=== PATIENT | male | born 1965 | race Caucasian/White ===

== ENCOUNTER 2021-08-04 12:56 | Emergency (ER) | payer OTHER ==
[~2021-08-04] VITALS: Ht 177.8 cm; Wt 99.8 kg
[2021-08-04] MEDS ORDERED: ASPIRIN 81 MG CHEW (CHILDREN'S ASA) PO ONE (13:15)
--- NOTE | 2021-08-04 13:19 | ED Chest Pain ---
General Stated Complaint: CP,HIGH HR, LYNN Source: patient Exam Limitations: no limitations (KRISTINA ZALDIVAR APRN) History of Present Illness Date Seen by Provider: Aug 04, 2021 Time Seen by Provider: 13:15 Initial Comments To ER with central chest pain since yesterday when he was driving. He has been alerted by his apple watch that his heart rate has been high for a couple of days. He has a history of atrial fibrillation/atrial flutter and is on metoprolol 50mg po daily and cardizem 240mg po daily and Pradaxa twice daily. He has not missed any Pradaxa doses but has skipped 2 weeks of metoprolol doses because he felt like his heart rate would increase after he took it. He did take a dose of it this morning prior to coming here. He is not sure how many milligrams this is. He follows with cardiology in [place] where he resides and is visiting here for the holidays. No history of coronary stenting. He states that they did mention wanting to do an ablation but he has not had that done yet. He is a non-smoker but has hyperlipidemia on atorvastatin, diabetes controlled with oral medications. Timing/Duration: 2-3 days Severity/Quality: moderate Location: central Radiation: no radiation Activities at Onset: none ASA po SHADE BANDER: No NTG SL SHADE BANDER: No Associated Symptoms: denies symptoms (KRISTINA ZALDIVAR APRN) Allergies and Home Medications Allergies Coded Allergies: No Known Drug Allergies (Unverified , 08/04/21) Patient Home Medication List Home Medication List Reviewed: Yes (KRISTINA ZALDIVAR APRN) Diltiazem HCl (Cardizem Cd) 120 Mg Cap.er.24h, 120 MG PO DAILY Prescribed by: KRISTINA ZALDIVAR on 08/04/21 1408 Review of Systems Review of Systems Constitutional: see HPI; No chills, No diaphoresis, No dizziness, No fever EENTM: No Symptoms Reported Respiratory: No Symptoms Reported Cardiovascular: See HPI, Chest Pain, Irregular Heart Rate, Palpitations Gastrointestinal: See HPI; Denies Nausea, Denies Vomiting Genitourinary: No Symptoms Reported Musculoskeletal: no symptoms reported Skin: no symptoms reported Psychiatric/Neurological: No Symptoms Reported Endocrine: No Symptoms Reported Hematologic/Lymphatic: No Symptoms Reported (KRISTINA ZALDIVAR APRN) Physical Exam Vital Signs Vital Signs - First Documented 08/04/21 13:02 Temp 36.1 Pulse 110 Resp 19 B/P (MAP) 117/93 (101) O2 Delivery Room Air (EMELIMACRINA Princess MEJIA) Vital Signs Capillary Refill : (KRISTINA ZALDIVAR APRN) Height, Weight, BMI Height: '" Weight: lbs. oz. kg; BMI Method: General Appearance: No Apparent Distress, WD/WN, Other (alert and oriented no distress very pleasant. Heart rate is varying from 105 a flutter up to 140. Blood pressure 118/91.) Neck: Full Range of Motion, Normal Inspection Respiratory: No Accessory Muscle Use, No Respiratory Distress Cardiovascular: Irregularly Irregular, Tachycardia Gastrointestinal: Normal Bowel Sounds, Non Tender, Soft Extremity: Normal Capillary Refill, Normal Inspection Neurologic/Psychiatric: Alert, Oriented x3 Skin: Normal Color, Warm/Dry (KRISTINA ZALDIVAR APRN) Progress/Results/Core Measures Results/Orders Lab Results Laboratory Tests Test 08/04/21 13:24 Range/Units White Blood Count 5.1 4.3-11.0 10^3/uL Red Blood Count 5.00 4.30-5.52 10^6/uL Hemoglobin 15.8 13.3-17.7 g/dL Hematocrit 44 40-54 % Mean Corpuscular Volume 88 80-99 fL Mean Corpuscular Hemoglobin 32 25-34 pg Mean Corpuscular Hemoglobin Concent 36 32-36 g/dL Red Cell Distribution Width 11.9 10.0-14.5 % Platelet Count 205 130-400 10^3/uL Mean Platelet Volume 10.8 9.0-12.2 fL Immature Granulocyte % (Auto) 0 % Neutrophils (%) (Auto) 63 42-75 % Lymphocytes (%) (Auto) 19 12-44 % Monocytes (%) (Auto) 15 H 0-12 % Eosinophils (%) (Auto) 2 0-10 % Basophils (%) (Auto) 1 0-10 % Neutrophils # (Auto) 3.2 1.8-7.8 10^3/uL Lymphocytes # (Auto) 1.0 1.0-4.0 10^3/uL Monocytes # (Auto) 0.8 0.0-1.0 10^3/uL Eosinophils # (Auto) 0.1 0.0-0.3 10^3/uL Basophils # (Auto) 0.1 0.0-0.1 10^3/uL Immature Granulocyte # (Auto) 0.0 0.0-0.1 10^3/uL Prothrombin Time 16.5 H 12.2-14.7 SEC INR Comment 1.3 0.8-1.4 Activated Partial Thromboplast Time 48 H 24-35 SEC Sodium Level 133 L 135-145 MMOL/L Potassium Level 3.9 3.6-5.0 MMOL/L Chloride Level 98 98-107 MMOL/L Carbon Dioxide Level 24 21-32 MMOL/L Anion Gap 11 5-14 MMOL/L Blood Urea Nitrogen 9 7-18 MG/DL Creatinine 0.88 0.60-1.30 MG/DL Estimat Glomerular Filtration Rate 90 BUN/Creatinine Ratio 10 Glucose Level 155 H 70-105 MG/DL Calcium Level 9.3 8.5-10.1 MG/DL Corrected Calcium 9.1 8.5-10.1 MG/DL Magnesium Level 1.7 1.6-2.4 MG/DL Total Bilirubin 0.5 0.1-1.0 MG/DL Aspartate Amino Transf (AST/SGOT) 32 5-34 U/L Alanine Aminotransferase (ALT/SGPT) 39 0-55 U/L Alkaline Phosphatase 68 40-136 U/L Myoglobin 51.2 10.0-92.0 NG/ML Troponin I < 0.028 <0.028 NG/ML B-Type Natriuretic Peptide 231.7 H <100.0 PG/ML Total Protein 7.2 6.4-8.2 GM/DL Albumin 4.3 3.2-4.5 GM/DL (MACRINA SAINZ [facility]) Vital Signs/I&O 08/04/21 13:02 Temp 36.1 Pulse 110 Resp 19 B/P (MAP) 117/93 (101) O2 Delivery Room Air (EMELIMACRINA Davis [facility]) Departure Communication (Admissions) EKG shows atrial flutter with 2-1 AV block rate of 127 prolonged QT interval with QTC of 546 ms 1407-his troponin is negative despite chest pain since yesterday that is constant. Currently heart rate of 77 still atrial flutter, blood pressure 93 /70. He is receiving a bag of fluids. He has received 10 mg Cardizem push and a 180 mg Cardizem CD p.o. We will get his blood pressure up then we can discharge home on some oral Cardizem to follow-up with cardiology (KRISTINA ZALDIVAR APRN) Impression Primary Impression: Atrial flutter with rapid ventricular response Disposition: 01 HOME, SELF-CARE Condition: Improved Departure-Patient Inst. Decision time for Depature: 14:08 (KRISTINA ZALDIVAR APRN) Referrals: NO,LOCAL PHYSICIAN (PCP/Family) Primary Care Physician Patient Instructions: Atrial Flutter Add. Discharge Instructions: 1. Medication as directed. Continue the Pradaxa. Return to ER for any concerns. Scripts Diltiazem HCl (Cardizem Cd) 120 Mg Cap.er.24h 120 MG PO DAILY, #10 CAP Prov: KRISTINA ZALDIVAR APRN 08/04/21 ATTENDING PHYSICIAN NOTE: I WAS PHYSICALLY PRESENT ER PHYSICIAN WHEN THIS PATIENT WAS IN ER, BUT I WAS NOT INVOLVED IN ANY DECISION MAKING OR ANY CARE OF THIS PATIENT. (MACRINA SAINZ DO) KRISTINA ZALDIVAR APRN Aug 04, 2021 13:19 MACRINA SAINZ DO Aug 06, 2021 12:41
[2021-08-04 13:30] LABS: BASOPHILS # (AUTO) 0.1 10^3/uL (0.0-0.1); BASOPHILS % (AUTO) 1 % (0-10); EOSINOPHILS # (AUTO) 0.1 10^3/uL (0.0-0.3); EOSINOPHILS % (AUTO) 2 % (0-10); HEMATOCRIT 44 % (40-54); HEMOGLOBIN 15.8 g/dL (13.3-17.7); LYMPHOCYTES % (AUTO) 19 % (12-44); MEAN CORPUSCULAR HEMOGLOBIN 32 pg (25-34); MEAN CORPUSCULAR HGB CONC 36 g/dL (32-36); MEAN CORPUSCULAR VOLUME 88 fL (80-99); MEAN PLATELET VOLUME 10.8 fL (9.0-12.2); MONOCYTES # (AUTO) 0.8 10^3/uL (0.0-1.0); MONOCYTES % (AUTO) 15 % (0-12); NEUTROPHILS # (AUTO) 3.2 10^3/uL (1.8-7.8); NEUTROPHILS % (AUTO) 63 % (42-75); PLATELET COUNT 205 10^3/uL (130-400); WHITE BLOOD COUNT 5.1 10^3/uL (4.3-11.0)
[2021-08-04 13:40] LABS: ALBUMIN 4.3 GM/DL (3.2-4.5); POTASSIUM 3.9 MMOL/L (3.6-5.0)
[2021-08-04 13:42] LABS: CALCIUM 9.3 MG/DL (8.5-10.1)
[2021-08-04 13:43] LABS: INR 1.3 (0.8-1.4); PROTHROMBIN TIME PATIENT 16.5 SEC (12.2-14.7); TOTAL PROTEIN 7.2 GM/DL (6.4-8.2)
[2021-08-04 13:45] LABS: BILIRUBIN,TOTAL 0.5 MG/DL (0.1-1.0)
[2021-08-04 13:46] LABS: CREATININE SERUM 0.88 MG/DL (0.60-1.30)
[2021-08-04 13:49] LABS: MAGNESIUM 1.7 MG/DL (1.6-2.4)
[2021-08-04] MEDS ORDERED: DILT120C82 PO (14:08)
[2021-08-04 15:26] VITALS: BP 139/78
--- NOTE | 2021-08-04 18:18 | Diagnostic Imaging Report ---
INDICATION: Chest pain and headache. TIME OF EXAM: 1:22 p.m. COMPARISON: No prior studies are available for comparison. FINDINGS: The heart size is normal. The pulmonary vascularity is unremarkable. The lungs are clear. No infiltrate, effusion or pneumothorax is detected. IMPRESSION: No acute cardiopulmonary process is detected. Dictated by: Dictated on workstation # [id number]
== END 2021-08-04 15:26 | disposition home or self-care (01) ==
LOC: EDUNIT# 12:56 → ER 13:02
DX: I48.92 Unspecified atrial flutter (principal); E78.00 Pure hypercholesterolemia, unspecified; E11.9 Type 2 diabetes mellitus without complications; Z79.899 Other long term (current) drug therapy
CPT/HCPCS: 36415; 71045; 80053; 83735; 83874; 83880; 84484; 85025; 85610; 85730; 93041